=== PATIENT | female | born 1955 | race Caucasian/White ===

== ENCOUNTER 2016-09-23 13:07 | Emergency (ER) | payer OTHER, MEDICAID | END 2016-09-23 13:21 | disposition left against medical advice (07) | LOC: ED 13:07 | DX: Z53.21 Procedure and treatment not carried out due to patient leaving prior to being seen by health care provider (principal) ==

== ENCOUNTER 2016-09-24 02:49 | Emergency (ER) | payer OTHER, MEDICAID ==
[2016-09-24 03:45] VITALS: BP 150/104
== END 2016-09-24 03:45 | disposition home or self-care (01) ==
LOC: ED 02:49
DX: N39.0 Urinary tract infection, site not specified (principal)

== ENCOUNTER 2018-01-22 10:13 | Inpatient (IN) | payer OTHER, MEDICAID ==
[~2018-01-22] VITALS: Ht 162.6 cm; Wt 49.1 kg
[2018-01-22 10:16] VITALS: Ht 162.6 cm; Wt 49.1 kg
[2018-01-22 11:00] LABS: BASOPHIL % 0.1 % (0-2); PLATELET COUNT 413 x10^3mcL (130-400); RED CELL DISTRIBUTION WIDTH 19.4 % (11.5-14.5)
[2018-01-22 11:18] LABS: ALKALINE PHOSPHATASE 400 U/L (46-116); ALT/SGPT 19 U/L (14-59); AST/SGOT 46 U/L (15-37); BILIRUBIN TOTAL 0.3 mg/dL (0.20-1.00); CALCIUM 9.2 mg/dL (8.5-10.1); CHLORIDE SERUM 100 mmol/L (98-107); CREATININE SERUM 0.9 mg/dL (0.6-1.0); GFR1 > 60 mL/min; GLUCOSE SERUM 103 mg/dL (74-106); SODIUM SERUM 134 mmol/L (136-145)
[2018-01-22 11:20] LABS: ALBUMIN 2.8 g/dL (3.4-5.0); POTASSIUM SERUM 2.7 mmol/L (3.5-5.1)
[2018-01-22 11:59] LABS: microscopic required? NO
[2018-01-22 12:22] LABS: urine erythrocyte NEGATIVE (NEGATIVE)
[2018-01-22 14:43] VITALS: BP 150/76
[2018-01-22] MEDS ORDERED: ESTRACE1 MG PO (17:27)
[2018-01-22] MEDS ORDERED: DECARA50000 UNIT PO (17:28)
[2018-01-22] MEDS ORDERED: IBUPROFEN400 MG PO (17:29)
[2018-01-22] MEDS ORDERED: KLOR-CON M1010 MEQ PO (17:30)
[2018-01-22] MEDS ORDERED: NOR10T PO (17:32)
[2018-01-22] MEDS ORDERED: NATURE'S BLE2500 MCG SL (17:34)
[2018-01-22 18:00] VITALS: BP 147/76
[2018-01-22 18:16] LABS: MAGNESIUM 2.1 mg/dL (1.8-2.4); PHOSPHOROUS 3.8 mg/dL (2.5-4.9)
[2018-01-22 18:25] LABS: FREE T4 0.96 ng/dL (0.76-1.46); FREE THYROXINE INDEX 2.3 ug/dL (1.4-4.5); T4(THYROXINE) 8.4 ug/dL (4.7-13.3)
[2018-01-22 18:37] LABS: CHOLESTEROL/HDL RATIO 1.9
[2018-01-22 18:48] LABS: T3 TOTAL 1.1 ng/mL
[2018-01-22 20:38] VITALS: BP 140/84
[2018-01-23 05:35] VITALS: BP 145/83
[2018-01-23 06:35] LABS: CALCIUM 8.6 mg/dL (8.5-10.1); CHLORIDE SERUM 105 mmol/L (98-107); CREATININE SERUM 0.8 mg/dL (0.6-1.0); GFR1 > 60 mL/min; GLUCOSE SERUM 89 mg/dL (74-106); PLATELET COUNT 342 x10^3mcL (130-400); POTASSIUM SERUM 3.3 mmol/L (3.5-5.1); RED CELL DISTRIBUTION WIDTH 19.4 % (11.5-14.5); SODIUM SERUM 138 mmol/L (136-145)
[2018-01-23 06:49] LABS: CARBON DIOXIDE 19.2 mmol/L (21-32)
[2018-01-23 08:42] LABS: ATYPICAL LYMPH 2 %; BAND NEUTROPHIL 1 % (0-10); BASOPHIL 0 % (0-2); MONOCYTE 12 % (0-7); SEGMENTED NEUTROPHILS 82 % (37-75)
[2018-01-23 08:43] LABS: PLATELET MORPHOLOGY PLATELETS NORMAL; rbc morphology (normal/abnorm) ABNORMAL (NORMAL)
[2018-01-23 09:16] VITALS: BP 150/78
[2018-01-23 12:13] VITALS: BP 152/76
[2018-01-23 16:36] VITALS: BP 139/46
[2018-01-23 17:06] VITALS: BP 139/46
[2018-01-23 21:22] VITALS: BP 131/79
[2018-01-24 05:46] VITALS: BP 147/83
[2018-01-24 06:11] LABS: CALCIUM 8.4 mg/dL (8.5-10.1); CHLORIDE SERUM 102 mmol/L (98-107); CREATININE SERUM 0.9 mg/dL (0.6-1.0); GFR1 > 60 mL/min; GLUCOSE SERUM 103 mg/dL (74-106); POTASSIUM SERUM 3.6 mmol/L (3.5-5.1); SODIUM SERUM 137 mmol/L (136-145)
[2018-01-24 07:44] LABS: PLATELET COUNT 269 x10^3mcL (130-400)
[2018-01-24 07:45] LABS: BASOPHIL % 0 % (0-2); RED CELL DISTRIBUTION WIDTH 21.7 % (11.5-14.5)
[2018-01-24 09:15] VITALS: BP 142/84
[2018-01-24 12:42] VITALS: BP 146/85
[2018-01-24 17:25] VITALS: BP 150/82
[2018-01-24 20:56] VITALS: BP 144/92
[2018-01-25 05:36] VITALS: BP 127/70
[2018-01-25 06:29] LABS: BASOPHIL % 0.1 % (0-2); PLATELET COUNT 264 x10^3mcL (130-400)
[2018-01-25 06:34] LABS: CALCIUM 8.3 mg/dL (8.5-10.1); CARBON DIOXIDE 27.1 mmol/L (21-32); CHLORIDE SERUM 101 mmol/L (98-107); CREATININE SERUM 0.9 mg/dL (0.6-1.0); GFR1 > 60 mL/min; GLUCOSE SERUM 99 mg/dL (74-106); POTASSIUM SERUM 3.1 mmol/L (3.5-5.1); SODIUM SERUM 138 mmol/L (136-145)
[2018-01-25 07:11] LABS: RED CELL DISTRIBUTION WIDTH 21.4 % (11.5-14.5)
[2018-01-25 07:12] LABS: rbc morphology (normal/abnorm) ABNORMAL (NORMAL)
[2018-01-25 09:09] VITALS: BP 115/75
[2018-01-25 12:53] VITALS: BP 117/59
[2018-01-25 15:30] VITALS: BP 117/59
[2018-01-25 17:45] VITALS: BP 116/69
== END 2018-01-25 18:24 | DRG 477 ==
LOC: ED 10:13 → DU 12:35 → EDBEDREQSVC 12:36 → DU 14:28
PROVIDERS: Emergency Medicine; Internal Medicine; Neuromusculoskeletal Medicine, Sports Medicine
PROC: 0QB70ZX Excision of Left Upper Femur, Open Approach, Diagnostic (ICD-10-PCS; 2018-01-23)
PROC: 0QS904Z Reposition Left Femoral Shaft with Internal Fixation Device, Open Approach (ICD-10-PCS; principal; 2018-01-23 13:30)
DX: M84.452A Pathological fracture, left femur, initial encounter for fracture (principal); E43 Unspecified severe protein-calorie malnutrition; S27.321A Contusion of lung, unilateral, initial encounter; E87.1 Hypo-osmolality and hyponatremia; C79.51 Secondary malignant neoplasm of bone; D68.59 Other primary thrombophilia; M84.48XA Pathological fracture, other site, initial encounter for fracture; E87.6 Hypokalemia; M81.0 Age-related osteoporosis without current pathological fracture; D53.9 Nutritional anemia, unspecified; E78.5 Hyperlipidemia, unspecified; E03.9 Hypothyroidism, unspecified; Z68.23 Body mass index [BMI] 23.0-23.9, adult; Z85.3 Personal history of malignant neoplasm of breast; Z90.12 Acquired absence of left breast and nipple; Z92.21 Personal history of antineoplastic chemotherapy; Z92.3 Personal history of irradiation; Z79.891 Long term (current) use of opiate analgesic; W01.0XXA Fall on same level from slipping, tripping and stumbling without subsequent striking against object, initial encounter; Y92.002 Bathroom of unspecified non-institutional (private) residence as the place of occurrence of the external cause
CPT/HCPCS: 84439; 94150; 97110-GP; 97116-GP; 97530-GP; C1713; J0690; J1170; J1644; J2270; J2405; J2704; J3010; J3475; J3480; J3490; J7030; J7040; J7050; J7120; P9016; Q0163

== ENCOUNTER 2018-02-15 10:29 | Inpatient (IN) | payer OTHER, MEDICAID ==
[~2018-02-15] VITALS: Ht 162.6 cm; Wt 40.6 kg
[~2018-02-15 10:29] MED LIST: DECARA50000 UNIT PO; ESTRACE1 MG PO; IBUPROFEN400 MG PO; KLOR-CON M1010 MEQ PO; NATURE'S BLE2500 MCG SL; NOR10T PO
[2018-02-15 10:35] VITALS: Ht 162.6 cm; Wt 40.6 kg
[2018-02-15 11:34] LABS: BASOPHIL % 0.2 % (0-2)
[2018-02-15 11:35] LABS: PLATELET COUNT 469 x10^3mcL (130-400); RED CELL DISTRIBUTION WIDTH 23.4 % (11.5-14.5)
[2018-02-15 11:43] LABS: BILIRUBIN TOTAL 0.6 mg/dL (0.20-1.00); CARBON DIOXIDE 27.9 mmol/L (21-32); CREATININE SERUM 1.1 mg/dL (0.6-1.0); POTASSIUM SERUM 4.2 mmol/L (3.5-5.1); TOTAL PROTEIN, SERUM 7.2 g/dL (6.4-8.2)
[2018-02-15 11:44] LABS: ALBUMIN 2.5 g/dL (3.4-5.0)
[2018-02-15 11:47] LABS: CALCIUM 13.6 mg/dL (8.5-10.1)
[2018-02-15] MEDS ORDERED: GABAPENTIN (12:07)
[2018-02-15 12:32] LABS: rbc morphology (normal/abnorm) ABNORMAL (NORMAL)
[2018-02-15 12:42] LABS: UA SPECIFIC GRAVITY >=1.030 (1.005-1.035); microscopic required? YES; urine erythrocyte NEGATIVE (NEGATIVE)
[2018-02-15 13:10] LABS: AMPHETAMINE QUAL UR NONE DETECTED (See below)
[2018-02-15 13:15] LABS: MAGNESIUM 2.1 mg/dL (1.8-2.4); PHOSPHOROUS 3.8 mg/dL (2.5-4.9)
[2018-02-15 13:23] LABS: T3 TOTAL 0.61 ng/mL
[2018-02-15 13:39] LABS: FREE T4 0.85 ng/dL (0.76-1.46); FREE THYROXINE INDEX 2.1 ug/dL (1.4-4.5); T4(THYROXINE) 7.6 ug/dL (4.7-13.3)
[2018-02-15 13:46] VITALS: BP 110/77
[2018-02-15 17:32] VITALS: BP 110/71
[2018-02-15 21:37] VITALS: BP 122/74
[2018-02-16 05:43] VITALS: BP 131/82
[2018-02-16 07:00] LABS: CALCIUM 12.2 mg/dL (8.5-10.1); CARBON DIOXIDE 24.7 mmol/L (21-32)
[2018-02-16 07:58] LABS: BASOPHIL % 0.1 % (0-2); PLATELET COUNT 377 x10^3mcL (130-400); RED CELL DISTRIBUTION WIDTH 23.8 % (11.5-14.5)
[2018-02-16 10:34] VITALS: BP 131/75
[2018-02-16 17:19] VITALS: BP 147/85
[2018-02-16 21:53] VITALS: BP 130/81
[2018-02-17 05:21] VITALS: BP 133/78
[2018-02-17 07:17] LABS: AMYLASE 60 U/L (25-115); CALCIUM 11.4 mg/dL (8.5-10.1); CARBON DIOXIDE 20.8 mmol/L (21-32); CHLORIDE SERUM 103 mmol/L (98-107); CREATININE SERUM 0.9 mg/dL (0.6-1.0); GFR1 > 60 mL/min; GLUCOSE SERUM 75 mg/dL (74-106); LIPASE 594 IU/L (73-393); POTASSIUM SERUM 3.3 mmol/L (3.5-5.1); SODIUM SERUM 133 mmol/L (136-145)
[2018-02-17 07:44] LABS: PLATELET COUNT 336 x10^3mcL (130-400)
[2018-02-17 08:00] VITALS: BP 116/70
[2018-02-17 08:27] LABS: BASOPHIL % 0 % (0-2); RED CELL DISTRIBUTION WIDTH 23.3 % (11.5-14.5)
[2018-02-17 08:29] LABS: rbc morphology (normal/abnorm) ABNORMAL (NORMAL)
[2018-02-17 15:37] LABS: PLATELET COUNT 347 x10^3mcL (130-400)
[2018-02-17 15:38] LABS: RED CELL DISTRIBUTION WIDTH 23.1 % (11.5-14.5)
[2018-02-17 15:39] LABS: BASOPHIL % 0 % (0-2)
[2018-02-17 15:58] LABS: rbc morphology (normal/abnorm) ABNORMAL (NORMAL)
[2018-02-17 16:01] LABS: ovalocyte/elliptocyte 1+
[2018-02-17 17:36] VITALS: BP 128/76
[2018-02-17 21:25] VITALS: BP 121/71
[2018-02-18 04:55] VITALS: BP 113/70
[2018-02-18 07:25] LABS: AMYLASE 63 U/L (25-115); CALCIUM 10.5 mg/dL (8.5-10.1); CARBON DIOXIDE 23.5 mmol/L (21-32); CHLORIDE SERUM 106 mmol/L (98-107); CREATININE SERUM 0.9 mg/dL (0.6-1.0); GFR1 > 60 mL/min; GLUCOSE SERUM 88 mg/dL (74-106); LIPASE 576 IU/L (73-393); POTASSIUM SERUM 3.9 mmol/L (3.5-5.1); SODIUM SERUM 139 mmol/L (136-145)
[2018-02-18 07:47] LABS: BASOPHIL % 0.1 % (0-2); PLATELET COUNT 300 x10^3mcL (130-400)
[2018-02-18 08:00] VITALS: BP 111/62
[2018-02-18 08:00] LABS: RED CELL DISTRIBUTION WIDTH 21.8 % (11.5-14.5)
[2018-02-18 08:03] LABS: rbc morphology (normal/abnorm) ABNORMAL (NORMAL)
[2018-02-18 08:04] LABS: ovalocyte/elliptocyte 1+
[2018-02-18 10:45] VITALS: BP 112/68
[2018-02-18 11:10] VITALS: BP 134/77
[2018-02-18 17:15] VITALS: BP 114/68
[2018-02-18 19:41] LABS: BASOPHIL % 0.1 % (0-2); PLATELET COUNT 286 x10^3mcL (130-400)
[2018-02-18 19:49] LABS: RED CELL DISTRIBUTION WIDTH 20.6 % (11.5-14.5)
[2018-02-18 20:26] LABS: rbc morphology (normal/abnorm) ABNORMAL (NORMAL)
[2018-02-18 20:28] LABS: ovalocyte/elliptocyte 1+; tear drop cell (dacryocyte) 1+
[2018-02-18 20:40] VITALS: BP 109/70
[2018-02-19 05:36] VITALS: BP 114/72
[2018-02-19 06:51] LABS: CALCIUM 10.4 mg/dL (8.5-10.1); CARBON DIOXIDE 23.8 mmol/L (21-32); CHLORIDE SERUM 105 mmol/L (98-107); CREATININE SERUM 0.8 mg/dL (0.6-1.0); GFR1 > 60 mL/min; GLUCOSE SERUM 82 mg/dL (74-106); POTASSIUM SERUM 3.8 mmol/L (3.5-5.1); SODIUM SERUM 137 mmol/L (136-145)
[2018-02-19 06:53] LABS: BASOPHIL % 0.1 % (0-2); PLATELET COUNT 290 x10^3mcL (130-400)
[2018-02-19 07:04] LABS: RED CELL DISTRIBUTION WIDTH 20.8 % (11.5-14.5)
[2018-02-19 09:52] VITALS: BP 133/74
[2018-02-19 17:02] VITALS: BP 105/64
[2018-02-19 20:56] VITALS: BP 108/67
[2018-02-20 05:55] VITALS: BP 117/71
[2018-02-20 06:43] LABS: BASOPHIL % 0.1 % (0-2); PLATELET COUNT 251 x10^3mcL (130-400)
[2018-02-20 06:47] LABS: CALCIUM 10.8 mg/dL (8.5-10.1); CARBON DIOXIDE 24.9 mmol/L (21-32); CHLORIDE SERUM 103 mmol/L (98-107); CREATININE SERUM 0.8 mg/dL (0.6-1.0); GFR1 > 60 mL/min; GLUCOSE SERUM 68 mg/dL (74-106); POTASSIUM SERUM 3.7 mmol/L (3.5-5.1); SODIUM SERUM 139 mmol/L (136-145)
[2018-02-20 07:02] LABS: RED CELL DISTRIBUTION WIDTH 22.6 % (11.5-14.5)
[2018-02-20] MEDS ORDERED: MS CONTIN30 M1 PO (07:29)
[2018-02-20] MEDS ORDERED: MEGL PO (07:36)
[2018-02-20 07:53] LABS: rbc morphology (normal/abnorm) ABNORMAL (NORMAL)
[2018-02-20 09:54] VITALS: BP 120/72
[2018-02-20] MEDS ORDERED: KEFLEX500 M1 PO (10:01)
[2018-02-20 10:22] VITALS: BP 120/72
== END 2018-02-20 12:00 | disposition home health service (06) | DRG 438 ==
LOC: ED 10:29 → MU 12:09
PROVIDERS: Emergency Medicine; Family Medicine
DX: K85.20 Alcohol induced acute pancreatitis without necrosis or infection (principal); N17.0 Acute kidney failure with tubular necrosis; E43 Unspecified severe protein-calorie malnutrition; C79.51 Secondary malignant neoplasm of bone; N39.0 Urinary tract infection, site not specified; E87.1 Hypo-osmolality and hyponatremia; Z68.1 Body mass index [BMI] 19.9 or less, adult; E83.52 Hypercalcemia; E87.6 Hypokalemia; K76.0 Fatty (change of) liver, not elsewhere classified; B96.1 Klebsiella pneumoniae [K. pneumoniae] as the cause of diseases classified elsewhere; D47.3 Essential (hemorrhagic) thrombocythemia; D63.0 Anemia in neoplastic disease; E78.5 Hyperlipidemia, unspecified; Z96.641 Presence of right artificial hip joint; F17.210 Nicotine dependence, cigarettes, uncomplicated; Z85.3 Personal history of malignant neoplasm of breast
CPT/HCPCS: 82962; 83880; 84439; 97110-GP; C9113; J0696; J1644; J2270; J2405; J2430; J3010; J7030; J7050; P9016; Q0092; Q0163; Q9967

== ENCOUNTER 2018-03-13 11:13 | Inpatient (IN) | payer OTHER, MEDICAID ==
[~2018-03-13] VITALS: Ht 152.4 cm; Wt 42.6 kg
[~2018-03-13 11:13] MED LIST changes: +GABAPENTIN; +KEFLEX500 M1 PO; +MEGL PO; +MS CONTIN30 M1 PO
[2018-03-13 11:21] VITALS: Ht 152.4 cm; Wt 42.6 kg
[2018-03-13 12:09] LABS: PLATELET COUNT 342 x10^3mcL (130-400)
[2018-03-13 12:10] LABS: BASOPHIL % 0 % (0-2); RED CELL DISTRIBUTION WIDTH 23.5 % (11.5-14.5)
[2018-03-13 12:24] LABS: ALKALINE PHOSPHATASE 260 U/L (46-116); ALT/SGPT 23 U/L (14-59); AMYLASE 87 U/L (25-115); AST/SGOT 66 U/L (15-37); BILIRUBIN TOTAL 0.66 mg/dL (0.20-1.00); CARBON DIOXIDE 26.4 mmol/L (21-32); CHLORIDE SERUM 94 mmol/L (98-107); CHOLESTEROL 183 mg/dL (<200); CREATININE SERUM 2.8 mg/dL (0.6-1.0); GFR1 18 mL/min; GLUCOSE SERUM 89 mg/dL (74-106); LIPASE 756 IU/L (73-393); POTASSIUM SERUM 3.2 mmol/L (3.5-5.1); SODIUM SERUM 131 mmol/L (136-145); T4(THYROXINE) 8.5 ug/dL (4.7-13.3); TOTAL PROTEIN, SERUM 7.6 g/dL (6.4-8.2)
[2018-03-13 12:27] LABS: ALBUMIN 2.9 g/dL (3.4-5.0)
[2018-03-13 12:28] LABS: HDL CHOLESTEROL 111 mg/dL (40-60)
[2018-03-13 12:34] LABS: UA SPECIFIC GRAVITY 1.025 (1.005-1.035); microscopic required? YES; urine erythrocyte NEGATIVE (NEGATIVE)
[2018-03-13 12:40] LABS: AMPHETAMINE QUAL UR NONE DETECTED (See below)
[2018-03-13 12:44] LABS: CALCIUM 15.8 mg/dL (8.5-10.1)
[2018-03-13] MEDS ORDERED: CIPRO250 MG PO (14:15)
[2018-03-13] MEDS ORDERED: MORPHINE SULFAT15 MG PO (14:15)
[2018-03-13] MEDS ORDERED: TYL120S PR (14:15)
[2018-03-13 15:30] LABS: PHOSPHOROUS 3.9 mg/dL (2.5-4.9)
[2018-03-13 15:38] LABS: T3 TOTAL 1.07 ng/mL
[2018-03-13 15:40] LABS: FREE T4 0.73 ng/dL (0.76-1.46); FREE THYROXINE INDEX 2.1 ug/dL (1.4-4.5); T4(THYROXINE) 9.2 ug/dL (4.7-13.3)
[2018-03-13 15:41] LABS: CHOLESTEROL/HDL RATIO 1.7
[2018-03-13 16:04] VITALS: BP 134/86
[2018-03-13 21:19] VITALS: BP 133/75
[2018-03-13 22:54] LABS: CARBON DIOXIDE 23.1 mmol/L (21-32); CREATININE SERUM 2.6 mg/dL (0.6-1.0)
[2018-03-13 22:58] LABS: CALCIUM 13.7 mg/dL (8.5-10.1)
[2018-03-14 04:54] VITALS: BP 149/86
[2018-03-14 08:01] LABS: CARBON DIOXIDE 21.3 mmol/L (21-32); CREATININE SERUM 2.3 mg/dL (0.6-1.0); MAGNESIUM 1.6 mg/dL (1.8-2.4); POTASSIUM SERUM 3.7 mmol/L (3.5-5.1)
[2018-03-14 08:04] LABS: CALCIUM 13.5 mg/dL (8.5-10.1)
[2018-03-14 08:05] LABS: PLATELET COUNT 229 x10^3mcL (130-400)
[2018-03-14 08:06] LABS: BASOPHIL % 0 % (0-2); RED CELL DISTRIBUTION WIDTH 23.7 % (11.5-14.5)
[2018-03-14 08:10] LABS: rbc morphology (normal/abnorm) ABNORMAL (NORMAL)
[2018-03-14 08:30] VITALS: BP 145/78
[2018-03-14 14:30] VITALS: BP 130/70
[2018-03-14 16:00] VITALS: BP 147/75
[2018-03-14 21:29] VITALS: BP 125/66
[2018-03-14 22:13] LABS: PLATELET COUNT 177 x10^3mcL (130-400)
[2018-03-14 22:27] LABS: BASOPHIL % 0 % (0-2); RED CELL DISTRIBUTION WIDTH 21.1 % (11.5-14.5)
[2018-03-14 23:49] LABS: rbc morphology (normal/abnorm) ABNORMAL (NORMAL)
[2018-03-15 05:42] VITALS: BP 121/65
[2018-03-15 07:06] LABS: PLATELET COUNT 194 x10^3mcL (130-400)
[2018-03-15 07:07] LABS: BASOPHIL % 0 % (0-2); RED CELL DISTRIBUTION WIDTH 21.3 % (11.5-14.5)
[2018-03-15 07:08] LABS: rbc morphology (normal/abnorm) ABNORMAL (NORMAL)
[2018-03-15 07:24] LABS: CARBON DIOXIDE 19.8 mmol/L (21-32); CREATININE SERUM 2.4 mg/dL (0.6-1.0); POTASSIUM SERUM 3.2 mmol/L (3.5-5.1)
[2018-03-15 07:41] LABS: CALCIUM 14.1 mg/dL (8.5-10.1)
[2018-03-15 08:23] VITALS: BP 141/73
[2018-03-15 13:16] VITALS: BP 138/92
[2018-03-15 16:07] VITALS: BP 138/92
[2018-03-15 16:36] VITALS: BP 149/91
[2018-03-15 21:51] VITALS: BP 155/78
[2018-03-16 05:00] VITALS: BP 147/77
[2018-03-16 07:05] LABS: CARBON DIOXIDE 19.6 mmol/L (21-32); CREATININE SERUM 2.2 mg/dL (0.6-1.0); POTASSIUM SERUM 3.3 mmol/L (3.5-5.1)
[2018-03-16 07:16] LABS: PLATELET COUNT 171 x10^3mcL (130-400)
[2018-03-16 07:22] LABS: CALCIUM 13.4 mg/dL (8.5-10.1)
[2018-03-16 07:34] LABS: BASOPHIL % 0 % (0-2); RED CELL DISTRIBUTION WIDTH 21.5 % (11.5-14.5)
[2018-03-16 09:23] VITALS: BP 163/93
[2018-03-16 12:04] VITALS: BP 149/78
[2018-03-16 13:01] VITALS: BP 149/78
[2018-03-16] MEDS ORDERED: LEV250 PO (13:13)
== END 2018-03-16 16:36 | disposition hospice, home (50) | DRG 54 ==
LOC: ED 11:13 → MU 14:09 → DU 03-15 16:57
PROVIDERS: Emergency Medicine; Family Medicine
DX: C79.31 Secondary malignant neoplasm of brain (principal); L89.153 Pressure ulcer of sacral region, stage 3; K85.90 Acute pancreatitis without necrosis or infection, unspecified; N17.0 Acute kidney failure with tubular necrosis; E43 Unspecified severe protein-calorie malnutrition; G93.41 Metabolic encephalopathy; C79.51 Secondary malignant neoplasm of bone; E87.1 Hypo-osmolality and hyponatremia; M84.521A Pathological fracture in neoplastic disease, right humerus, initial encounter for fracture; Z68.1 Body mass index [BMI] 19.9 or less, adult; N39.0 Urinary tract infection, site not specified; E83.52 Hypercalcemia; E78.1 Pure hyperglyceridemia; R80.9 Proteinuria, unspecified; D63.0 Anemia in neoplastic disease; E86.0 Dehydration; E87.6 Hypokalemia; E78.5 Hyperlipidemia, unspecified; Z85.3 Personal history of malignant neoplasm of breast; Z96.643 Presence of artificial hip joint, bilateral
CPT/HCPCS: 36600; 82962; 83880; 84439; 92526-GN; 92610-GN; 97110-GP; G0480; J0696; J1450; J1644; J1940; J1956; J2270; J3475; J3480; J7030; J7050; P9016; Q0163